=== PATIENT | female | born 2000 | race Caucasian/White ===

== ENCOUNTER 2024-12-09 16:53 | Inpatient (IN) | payer MEDICAID, SELFPAY ==
[2024-12-09] VITALS (67 sets, daily range): BP systolic 94–140; BP diastolic 49–82; PULSE 60–139; RESP 16–18; TEMP 36.6–37.3; O2SAT 91–100; BMI 31.4
[2024-12-09] MEDS: 0.9% Saline Lock 10 ML Syringe IV (16:05)
[2024-12-09 16:40] LABS: Hematocrit 37.1 % (37-47); Hemoglobin 12.7 g/dL (12.0-15.0); Mean Corp Hgb Conc 34.2 g/dL (32-36); Mean Corpuscular Hgb 30.3 pg (27.0-32.0); Mean Corpuscular Volume 88.5 fL (81-99); Mean Platelet Vol. 10.4 fl (6.2-12.0); Platelet Count 346 K/mm3 (150-450); RBC Distribution Width SD 42.1 fl (35.1-43.9); Red Blood Count 4.19 M/mm3 (4.2-5.4); White Blood Count 17.2 K/mm3 (4.4-11.0)
[2024-12-09 17:01] LABS: AST(SGOT) 14 U/L (<=31); Alanine Aminotransfer ALT/SGPT 9 U/L (<=34); Creatinine, Serum 0.43 mg/dL (0.70-1.20); EST Glomerular Filtration Rate 142 (>60); Estimated Creatinine Clearance 256.03 ml/min (50-250)
[2024-12-09] MEDS: Lactated Ringers 1,000 ML 999 ML IV (17:05)
[2024-12-09 17:13] LABS: Uric Acid 4.8 mg/dL (2.6-6.0)
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
[2024-12-09] MEDS: fentaNYL-bupivacaine (epidural) 100 ML BAG EPIDURAL (17:34)
[2024-12-09 17:57] LABS: Protein, Urine (Random) 34.7 mg/dL (0.0-12.0); Protein:Creat Ratio 250 mg/g CRE (0-200)
[2024-12-09] MEDS: Lactated Ringers 1,000 ML 50 ML IV (18:06)
[2024-12-09 18:21] LABS: Syphilis Antibodies Nonreactive (Nonreactive)
[2024-12-09] MEDS: Oxytocin 10 UNITS/ML Vial IM (20:57)
[2024-12-09] MEDS: Oxytocin 15 Units/NS 250ml 15 UNITS/250 ML IV.SOLN 83 UNITS IV (20:57)
--- NOTE | 2024-12-09 21:15 | OB.VAGDELI_ITS ---
Assessment & Plan (1) Vaginal delivery: (2) First degree perineal laceration: (3) Lactating mother: Maternal Data Information NEWTON Calculator Estimated Delivery Date Method Current WG Current Estimate 12/14/24 Manual 39w 2d Vaginal Delivery Maternal Presentation Maternal Presentation: Active Labor Type of Induction: Amniotomy Vaginal Delivery Information Procedure Performed: Spontaneous Vaginal Delivery Date of Procedure: 12/09/24 Pre-Procedure Diagnosis: Active labor at term Post-Procedure Diagnosis: Type of anesthesia: Epidural Estimated Blood Loss: 400ml Time of Delivery: 20:52 Findings Description of procedure: Progressed to complete with urge to push. Epidural for pain management. of viable male over first degree vaginal laceration . APGARS 8,9 respectively. Infant head delivered with body immediately forthcoming. Placed on maternal abdomen, strong cry. Mouth and nares suctioned for secretions. Pitocin started for active 3rd stage management. Cord doubly clamped and cut by FOB after pulsations ceased, delayed cord clamping. Placenta delivered intact via santiago, 3 vessel cord intact. Perineum inspected and revealed first degree perineal laceration. Repaired with 3.0 vicryl rapide and epidural. Fundus firm and hemostasis achieved. EBL 400ml. Mom and baby stable, planning to breastfeed. Family bonding well. notified of delivery. Presentation: Vertex and KATY Amniotic Membrane Rupture Type: Artificial Amniotic Fluid Description: Clear Placental Delivery Description: Spontaneous Placenta Disposition: [facility] Specimen collected: No Cord Vessel Description: 3 Vessels Cord Entanglement: None Infant A Gender: Male (1 minute): 8 (5 minute): 9 Delayed Cord Clamping: Yes Bleach Boiler Packer process excellence manager: No Post Vaginal Deli Medications given after delivery: IV Pitocin and IM Pitocin Episiotomy Description: None Laceration: Vaginal Extension/lac and 1st degree Complication Complications: No
[2024-12-09] MEDS: Acetaminophen 500 MG Tablet 1000 MG PO (21:41)
[2024-12-09] MEDS: Benzocaine/Lanolin/Aloe Vera 85 GM Spray 1 SPRAY TOPICAL (23:40)
[2024-12-10 04:35] VITALS: BP 114/73; PULSE 94; RESP 16; TEMP 36.6; O2SAT 99
[2024-12-10] MEDS: Acetaminophen 500 MG Tablet 1000 MG PO ×2 (06:10→22:00)
[2024-12-10 08:07] VITALS: BP 118/76; PULSE 98; RESP 16; TEMP 37.1
--- NOTE | 2024-12-10 08:56 | PN.OBGYN_ITS ---
Subjective Subjective Denies complaints Objective Data Objective Data Vital Signs: Vital Signs Temp Pulse Resp BP Pulse Ox O2 Del Method 98.7 F 98 16 118/76 99 Room Air 12/10/24 08:07 12/10/24 08:07 12/10/24 08:07 12/10/24 08:07 12/10/24 04:35 12/10/24 08:07 Oxygen Delivery Method Room Air Weight: 213 lb Body Mass Index (BMI) 31.4 Intake & Output: Intake and Output for Last 24 Hours 12/08/24 12/09/24 12/10/24 23:59 23:59 23:59 Intake Total 1910.68 / 1910.68 0 / 0 Output Total 400 / 400 700 / 700 Balance 1510.68 / 1510.68 -700 / -700 Lab / Micro Data 12/09/24 16:05 12/09/24 16:05 Labs: Laboratory Results - last 24 hr 12/09/24 16:05: WBC 17.2 H, RBC 4.19 L, Hgb 12.7, Hct 37.1, MCV 88.5, MCH 30.3, MCHC 34.2, RDW Std Deviation 42.1, RDW Coeff of Dilia 13.0, Plt Count 346, MPV 10.4, Creatinine 0.43 L, Estim Creat Clear Calc 256.03 H, Est GFR (MDRD) Non-Af 142, Uric Acid 4.8, AST 14, ALT 9, Syphilis Total Ab Nonreactive, Blood Type O POSITIVE, Antibody Screen NEGATIVE 12/09/24 17:00: U Random Total Protein 34.7 H, Urine Creatinine 139.00, P rotein/Creatinin Ratio 250 H Physical Exam Const alert, oriented x3 and no apparent distress HEENT normocephalic GI soft to palpation, non-tender and non-distended GI Narrative: fundus firm, mid & below umbilicus Extremity normal to inspection and no calf tenderness Assessment & Plan (1) Vaginal delivery: COMMENT: PPD#1 PLAN: Plan Routine care
[2024-12-10 11:39] VITALS: BP 119/73; PULSE 85; RESP 18; TEMP 36.7
[2024-12-10] MEDS: Ibuprofen 600 MG Tablet PO ×2 (11:58→18:12)
[2024-12-10 16:57] VITALS: BP 121/76; RESP 15; TEMP 36.7
[2024-12-10 20:54] VITALS: BP 120/87; PULSE 80; RESP 16; TEMP 36.7; O2SAT 99
[2024-12-11 02:18] VITALS: BP 126/75; PULSE 81; RESP 16; TEMP 36.9; O2SAT 98
--- NOTE | 2024-12-11 08:31 | PCM.PN.BLA ---
Progress Note Pain well-controlled. Average lochia. Denies headache or visual changes. Physical Exam Const alert and no apparent distress Narrative: Fundus firm, below umbilicus. Assessment & Plan Assessment/Plan (1) Vaginal delivery: PLAN: day #2. Patient is doing well. is still under bili lights. If is cleared for discharge later today patient may be discharged. Otherwise likely discharge home tomorrow with . Continue routine care.
[2024-12-11 09:45] VITALS: BP 126/74; PULSE 116; RESP 16; TEMP 36.2; O2SAT 98
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
--- NOTE | 2024-12-11 14:11 | DS.PCM_ITS ---
Providers Date of Admission: 12/09/24 Primary Care Physician: Olena Ayon, INSIDE BARREL LATHE OPERATOR-C Reason For Visit: LABOR Diagnosis Discharge Diagnosis (1) Vaginal delivery: Status: Acute Code(s): O80 - Encounter for full-term uncomplicated delivery Plan: day #2. Patient is doing well. is still under bili lights. If is cleared for discharge later today patient may be discharged. Otherwise likely discharge home tomorrow with . Continue routine care. Medications at Discharge Home Medications vitamins-iron fumarate 65 mg iron-folic acid 1 mg tablet (Mynatal Plus) 1 tab PO DAILY 12/09/24 acetaminophen 500 mg tablet (Acetaminophen Extra Strength) 1,000 mg (2 x 500 mg) PO Q6H PRN fever or pain 20 days #60 tabs 12/11/24 ibuprofen 600 mg tablet 600 mg PO Q6H PRN Pain 20 days #60 TABLETS 12/11/24 Hospital Course Operations None Procedures None Summary of Care Provided Minutes Spent on Discharge: 16 Hospital Course: 23-year-old female admitted in active labor on 12/09/2024 had a spontaneous vaginal delivery on the same date with first-degree perineal laceration. By day #2 she was ambulating, urinating tolerating regular diet and she was discharged home with routine instructions and prescriptions and to follow-up in the office in 1-2 and 6 weeks or as needed. Weight / BMI Weight Weight: 96.615 kg Body Mass Index (BMI) 31.4 ABG / Lab / Microbiology Data 12/09/24 16:05 12/09/24 16:05 D/C Instructions May resume sexual activity in: 6 weeks DC O2, CPAP, BIPAP Needs Home O2 Discharge instructions: No Please Follow Up With: Tari Celaya CNM When: Follow up with our office in 1-2 and 6 weeks or as needed. [phone] Meaningful Use Info Meaningful Use Meaningful Use Diagnoses (Choose all that apply): None applicable Ischemic Stroke Statin Dosing Therapy Reference: STATIN DOSE THERAPY REFERENCE: * Patients > 75 years receive moderate or high dose statin therapy. * Patients 75 years or YOUNGER should receive HIGH intensity statin dose unless contraindicated. You will be required to document reason for non-treatment if statin daily dose does not meet guidelines. HIGH DOSE STATIN THERAPY DAILY Atorvastatin > than or = to 40 mg Rosuvastatin > than or = to 20 mg Amlodipine + Atorvastatin > than or = to 2.5/40 mg Ezetimibe + Simvastatin 10/80 mg Simvastatin 80mg Discharge Plan Admission Admit Date/Time: 12/09/24 16:53 Primary Reason for Your Visit: Vaginal delivery Attending Provider: Tari Celaya Primary Care Provider: Olena Ayon Discharge Orders/Prescriptions Prescriptions: New acetaminophen [Acetaminophen Extra Strength] 500 mg tablet 1,000 mg PO Q6H PRN (Reason: fever or pain) 20 Days Qty: 60 0RF ibuprofen 600 mg tablet 600 mg PO Q6H PRN (Reason: Pain) 20 Days Qty: 60 1RF Continued Mynatal Plus 65 mg iron- 1 mg tablet 1 tab PO DAILY Discontinued aspirin [Aspirin Childrens] 81 mg tablet,chewable 1 tab PO DAILY Referrals / Follow Up: Olena Ayon, INSIDE BARREL LATHE OPERATOR-C [Primary Care Provider] - Disposition Disposition (needs filled in before D/C Order can be placed): Home, Self Care
[2024-12-11 14:40] VITALS: BP 128/77; PULSE 102; RESP 16; TEMP 36.3; O2SAT 99
== END 2024-12-11 17:00 | disposition home or self-care (01) | DRG 560 ==
LOC: WPOUT 16:55 → WP 16:55
PROVIDERS: Admitting Provider Advanced Practice Midwife; PCP Nurse Practitioner Family; Referring Provider Advanced Practice Midwife; Visit Provider Advanced Practice Midwife
DX: O76 Abnormality in fetal heart rate and rhythm complicating labor and delivery (principal); Z37.0 Single live birth; O70.0 First degree perineal laceration during delivery; Z3A.39 39 weeks gestation of pregnancy; Z79.82 Long term (current) use of aspirin; Z86.59 Personal history of other mental and behavioral disorders
CPT/HCPCS: 59025; 59050; 82565; 82570; 84156; 84450; 84460; 84550; 85027; 86780; 86850; 86900; 86901; 99221; A4216; G0378